=== PATIENT | male | born 1950 | race Caucasian/White ===

== ENCOUNTER 2017-12-07 10:20 | Inpatient (IN) | payer OTHER, MEDICARE ==
[~2017-12-07] VITALS: Ht 177.8 cm; Wt 78.8 kg
[2017-12-07] VITALS (9 sets, daily range): BP systolic 130–143; BP diastolic 70–76; PULSE 67–96; RESP 17–19; TEMP 97.6–99.1; O2SAT 97–100
[2017-12-07] MEDS ORDERED: ceFAZolin INJ 1,000 MG VIAL ONE (10:28)
[2017-12-07] MEDS ORDERED: DIPHTH/TETANUS/ACEL PERTUSSIS (BOOSTER) 0.5 ML VIAL/PFS IM ONE (10:29)
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
[2017-12-07 10:41] LABS: AUTOMATED NEUTROPHIL # 7.5 TH/MM3 (1.8-7.7); BASOPHIL # 0.1 TH/MM3 (0-0.2); BASOPHIL % 1.1 % (0.0-2.0); EOSINOPHIL # 0.1 TH/MM3 (0-0.4); EOSINOPHIL % 0.9 % (0.0-4.0); HEMATOCRIT 44.8 % (39.0-51.0); LYMPH % 27.4 % (9.0-44.0); LYMPHOCYTE # 3.3 TH/MM3 (1.0-4.8); MEAN CELL VOLUME 96.2 FL (80.0-100.0); MEAN CORPUSCULAR HEMOGLOBIN 34.2 PG (27.0-34.0); MEAN CORPUSCULAR HGB CONC 35.6 % (32.0-36.0); MEAN PLATELET VOLUME 8.6 FL (7.0-11.0); MONO % 8.6 % (0.0-8.0); PLATELET COUNT 215 TH/MM3 (150-450); RED BLOOD COUNT 4.66 MIL/MM3 (4.50-5.90); WHITE BLOOD COUNT 12.1 TH/MM3 (4.0-11.0)
[2017-12-07 10:51] LABS: INTERNATIONAL NORMALIZED RATIO 1.1 RATIO; PROTHROMBIN TIME - PATIENT 11.1 SEC (9.8-11.6)
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
[2017-12-07] MEDS ORDERED: LIDOCAINE HCL 2% 20 ML VIAL ONE (11:20)
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
[2017-12-07] MEDS ORDERED: CHLORHEXIDINE GLUCONATE 2 % 1 PACK (2 CLOTHS) TOP PRN (12:15)
[2017-12-07] MEDS ORDERED: ENALAPRILAT 1.25 MG/ML VIAL IV PUSH PRN (12:15)
[2017-12-07] MEDS ORDERED: MORPHINE SULFATE 2 MG/ML SYRINGE IV PUSH PRN (12:15)
[2017-12-07] MEDS ORDERED: MISCELLANEOUS NURSING INFORMATION XX SCH (12:15)
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
[2017-12-07] MEDS ORDERED: IOHEXOL 350 MG/ML 10 ML VIAL (for RAD DIAG) IVCONTRAST ONE (12:40)
[2017-12-07] MEDS: DOCUSATE SODIUM 100 MG CAP PO SCH ×2 (13:00→21:34)
[2017-12-07] MEDS ORDERED: PANTOPRAZOLE SODIUM 40 MG VIAL IVP SCH (13:00)
[2017-12-07] MEDS: BACITRACIN TOP OINT 15 GM TUBE TOP SCH ×2 (13:00→21:00)
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
[2017-12-07] MEDS: ASPIRIN 325 MG TAB PO SCH (14:45)
[2017-12-07] MEDS ORDERED: MORPHINE SULFATE 2 MG/ML SYRINGE SQ PRN (15:00)
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
--- NOTE | 2017-12-07 18:17 | RADRPT ---
EXAM DATE/TIME: 12/07/2017 17:38 [facility] COMPARISON: CTA CAROTID ARTERIES W 3D RECON, December 07, 2017, 12:07. CT CERVICAL SPINE W/O CONTRAST, December 07 18, 10:32. INDICATIONS : Trauma. C2 fracture. MEDICAL HISTORY : None. SURGICAL HISTORY : Femur geremias. ENCOUNTER: Initial ACUITY: 1 day PAIN SCORE: 2/10 LOCATION: [facility] TECHNIQUE: Multiplanar, multisequence MRI examination of the cervical spine was performed. FINDINGS: VERTEBRAE: Patient has a nondisplaced type III odontoid fracture. No perceptible ligamentous abnormality. ALIGNMENT: No evidence of subluxation. CORD: Normal configuration and signal. POST FOSSA: The cerebellar tonsils are normal in position. 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 No associated stenosis. C2-C3: The disc is desiccated but otherwise within normal limits. Mild bilateral uncovertebral and facet ost eoarthritis. There is mild foraminal stenosis, mostly on the left. C3-C4: The disc is desiccated and has mild loss of height. There is diffuse bulging of the disc annulus and mild to moderate bilateral uncovertebral and facet osteoarthritis. There is mild to moderate bilatera l foraminal stenosis. No significant spinal stenosis. C4-C5: The disc is desiccated and has mild loss of height. There is diffuse bulging of the disc annulus and moderate right, mild left uncovertebral and facet osteoarthritis. There is mild narrowing of the fora melanie, mostly on the right. C5-C6: The disc is desiccated and has moderate loss of height. Small, broad/diffuse disc osteophyte complex and left greater than right uncovertebral and facet osteoarthritis present. There is moderate bilater al foraminal stenosis. C6-C7: The disc is desiccated and has mild loss of height. There is a small, broad posterior disc protrusion and mild bilateral uncovertebral and facet osteoarthritis. There is mild foraminal stenosis, mostly on the left. C7-T1: The disc is within normal limits. There is mild bilateral facet osteoarthritis. No foraminal or spina l stenosis. Flow signal void seen throughout the visualized vertebral arteries. CONCLUSION: 1. Nondisplaced type III odontoid fracture. No subluxations or evidence of an associated ligamentous abnormality. Normal cervical cord. 2. Multilevel degenerative changes of above. No significant spinal stenosis demonstrated. There are u p to moderate degrees of foraminal stenosis, mostly C5/C6. 3. Noncontrast MRI appearance of the vertebral arteries within normal limits. Ezekiel Garcia MD on December 07, 2017 at 18:06 Board Certified Radiologist. This report was verified electronically.
[2017-12-07] MEDS: FAMOTIDINE 20 MG TAB PO SCH (21:34)
[2017-12-07] MEDS: SODIUM CHLOR 0.9% 1000 ML INJ 1,000 ML IV SCH (22:49)
[2017-12-08] VITALS (8 sets, daily range): BP systolic 119–127; BP diastolic 65–72; PULSE 60–95; RESP 11–20; TEMP 97.3–99.2; O2SAT 94–98
[2017-12-08] MEDS: ACETAMINOPHEN/HYDROcodone 325 MG/5 MG TAB PO PRN ×2 (03:43→18:01)
[2017-12-08] MEDS: CHLORHEXIDINE GLUCONATE 2 % 1 PACK (2 CLOTHS) TOP SCH (04:00)
[2017-12-08 07:04] LABS: AUTOMATED NEUTROPHIL # 8.4 TH/MM3 (1.8-7.7); BASOPHIL % 0.3 % (0.0-2.0); EOSINOPHIL % 0.1 % (0.0-4.0); HEMATOCRIT 42.2 % (39.0-51.0); HEMOGLOBIN 14.4 GM/DL (13.0-17.0); LYMPH % 18.6 % (9.0-44.0); LYMPHOCYTE # 2.2 TH/MM3 (1.0-4.8); MEAN CELL VOLUME 96.5 FL (80.0-100.0); MEAN CORPUSCULAR HEMOGLOBIN 32.9 PG (27.0-34.0); MEAN CORPUSCULAR HGB CONC 34.1 % (32.0-36.0); MEAN PLATELET VOLUME 8.8 FL (7.0-11.0); MONO % 10.7 % (0.0-8.0); MONOCYTE # 1.3 TH/MM3 (0-0.9); NEUT % 70.3 % (16.0-70.0); PLATELET COUNT 203 TH/MM3 (150-450); RED BLOOD COUNT 4.37 MIL/MM3 (4.50-5.90); RED CELL DISTRIBUTION WIDTH 13.1 % (11.6-17.2); WHITE BLOOD COUNT 11.9 TH/MM3 (4.0-11.0)
[2017-12-08 07:21] LABS: BICARBONATE 25.5 MEQ/L (21.0-32.0); CALCIUM 7.8 MG/DL (8.5-10.1); CREATININE 0.89 MG/DL (0.60-1.30)
[2017-12-08] MEDS: SODIUM CHLOR 0.9% 1000 ML INJ 1,000 ML IV SCH ×2 (07:46→16:20)
[2017-12-08] MEDS ORDERED: ASPIRIN 325 MG TAB PO SCH (09:00)
[2017-12-08] MEDS: BACITRACIN TOP OINT 15 GM TUBE TOP SCH ×2 (09:00→21:22)
[2017-12-08] MEDS: ONDANSETRON HCL 4 MG/2 ML VIAL IV PUSH PRN (09:11)
[2017-12-08] MEDS: ASPIRIN 325 MG TAB PO SCH (09:11)
[2017-12-08] MEDS: FAMOTIDINE 20 MG TAB PO SCH ×2 (09:11→21:22)
[2017-12-08] MEDS: DOCUSATE SODIUM 50 MG/SENNA 8.6 MG TAB PO SCH ×2 (09:11→21:22)
[2017-12-08] MEDS: SODIUM CHLORIDE 0.9% FLUSH 10 ML FLUSH IV FLUSH PRN ×2 (09:12→21:23)
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
[2017-12-08] MEDS: ZOLPIDEM TARTRATE 5 MG TAB PO SCH (21:22)
[2017-12-09] VITALS: BP 126/71; PULSE 69; RESP 20; TEMP 97.6; O2SAT 96
[2017-12-09] MEDS: CHLORHEXIDINE GLUCONATE 2 % 1 PACK (2 CLOTHS) TOP SCH (04:00)
[2017-12-09 04:35] LABS: HEMATOCRIT 42.6 % (39.0-51.0); HEMOGLOBIN 14.6 GM/DL (13.0-17.0)
[2017-12-09] MEDS: ACETAMINOPHEN/HYDROcodone 325 MG/5 MG TAB PO PRN ×2 (06:10→22:01)
[2017-12-09 08:00] VITALS: BP 136/72; PULSE 76; RESP 16; TEMP 98.1; O2SAT 96
[2017-12-09] MEDS: DOCUSATE SODIUM 50 MG/SENNA 8.6 MG TAB PO SCH ×2 (09:47→22:01)
[2017-12-09] MEDS: ASPIRIN 325 MG TAB PO SCH (09:47)
[2017-12-09] MEDS: FAMOTIDINE 20 MG TAB PO SCH ×2 (09:47→22:01)
[2017-12-09] MEDS: BACITRACIN TOP OINT 15 GM TUBE TOP SCH (09:48)
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
[2017-12-09 12:00] VITALS: BP 122/74; PULSE 80; RESP 16; TEMP 98.2; O2SAT 95
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
[2017-12-09 16:00] VITALS: BP 130/78; PULSE 70; RESP 16; TEMP 97.8; O2SAT 95
[2017-12-09] MEDS ORDERED: POVIDONE IODINE 5% (ANTISEPSIS KIT) 4 APPLICATIONS EACH NARE PRN (19:30)
[2017-12-09] MEDS ORDERED: LACTATED RINGER'S 1000 ML IV PRN (19:30)
[2017-12-09] MEDS ORDERED: SODIUM CHLORID 0.9% 500 ML IV PRN (19:30)
[2017-12-09] MEDS ORDERED: METOPROLOL TARTRATE 25 MG TAB PO PRN (19:30)
[2017-12-09] MEDS ORDERED: CHLORHEXIDINE GLUCONATE 2 % 1 PACK (2 CLOTHS) TOPICAL PRN (19:30)
[2017-12-09 20:00] VITALS: BP 140/75; PULSE 62; RESP 18; TEMP 97.7; O2SAT 95
[2017-12-09] MEDS: ONDANSETRON HCL 4 MG/2 ML VIAL IV PUSH PRN (22:00)
[2017-12-09] MEDS: ZOLPIDEM TARTRATE 5 MG TAB PO SCH (22:01)
[2017-12-09] MEDS: SODIUM CHLORIDE 0.9% FLUSH 10 ML FLUSH IV FLUSH PRN (22:03)
[2017-12-10] VITALS: BP 128/70; PULSE 66; RESP 18; TEMP 97.8; O2SAT 96
[2017-12-10] MEDS: BACITRACIN TOP OINT 15 GM TUBE TOP SCH ×3 (00:05→22:36)
[2017-12-10 04:00] VITALS: BP 131/78; PULSE 68; RESP 18; TEMP 98; O2SAT 96
[2017-12-10] MEDS: CHLORHEXIDINE GLUCONATE 2 % 1 PACK (2 CLOTHS) TOP SCH (04:00)
[2017-12-10 08:00] VITALS: BP 135/75; PULSE 74; RESP 17; TEMP 98.1; O2SAT 94
[2017-12-10] MEDS: ASPIRIN 325 MG TAB PO SCH (09:00)
[2017-12-10] MEDS: DOCUSATE SODIUM 50 MG/SENNA 8.6 MG TAB PO SCH ×2 (09:00→21:46)
[2017-12-10] MEDS ORDERED: LACTULOSE SYRUP 20 GM/30 ML CUP PO SCH (09:00)
[2017-12-10] MEDS: MAGNESIUM HYDROXIDE SUSP 30 ML CUP PO SCH ×2 (09:00→21:46)
[2017-12-10] MEDS: FAMOTIDINE 20 MG TAB PO SCH ×2 (09:00→21:46)
[2017-12-10] MEDS ORDERED: ACETAMINOPHEN 1000 MG/100 ML 0 ML IV ONE (10:18)
[2017-12-10] MEDS ORDERED: ACETAMINOPHEN 1000 MG/100 ML 100 ML IV ONE (11:12)
[2017-12-10] MEDS ORDERED: GELFOAM SIZE 100 ONE (11:44)
[2017-12-10] MEDS ORDERED: THROMBIN (TOPICAL) 5,000 UNIT VIAL ONE (11:44)
[2017-12-10] MEDS: VANCOMYCIN HCL 1000 MG VIAL ONE ×2 (11:44→11:45)
[2017-12-10] MEDS ORDERED: BUPIVACAINE/EPINEPHRINE 0.5% 50 ML VIAL ONE (11:44)
[2017-12-10] MEDS ORDERED: SODIUM CHLOR 0.9% 250 ML INJ 250 ML ONE (11:45)
[2017-12-10] MEDS ORDERED: SODIUM CHLOR 0.9% 1000 ML INJ 2,000 ML IV ONE (12:00)
[2017-12-10] MEDS ORDERED: DEXAMETHASONE SOD PHOS 4 MG/ML VIAL IV ONE (12:00)
[2017-12-10] MEDS ORDERED: ePHEDrine/NS 25 MG/5 ML SYRINGE IV ONE (12:00)
[2017-12-10] MEDS ORDERED: PHENYLEPH/NS 1000 MCG/10 ML SYR IV ONE (12:00)
[2017-12-10] MEDS ORDERED: PROPOFOL 200 MG/20 ML AMP IV ONE (12:00)
[2017-12-10] MEDS ORDERED: LIDOCAINE HCL 1% PF 5 ML SYRINGE OTHER ONE (12:00)
[2017-12-10] MEDS ORDERED: ONDANSETRON HCL 4 MG/2 ML VIAL IV ONE (12:00)
[2017-12-10] MEDS ORDERED: SUCCINYLCHOLINE CHLORIDE 100 MG/5 ML SYRINGE IV PUSH ONE (12:00)
[2017-12-10] MEDS ORDERED: KETAMINE HCL 500 MG/10 ML VIAL ONE (12:03)
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
[2017-12-10] MEDS ORDERED: DEXAMETHASONE SOD PHOS 4 MG/ML VIAL ONE (12:09)
[2017-12-10] MEDS ORDERED: PROPOFOL 200 MG/20 ML AMP ONE (12:10)
[2017-12-10] MEDS ORDERED: LIDOCAINE HCL 2% 100 MG/5 ML SYRINGE ONE (12:11)
[2017-12-10] MEDS ORDERED: VANCOMYCIN HCL 1000 MG VIAL IRRIGATION ONE (13:01)
[2017-12-10] MEDS ORDERED: VANCOMYCIN HCL 1000 MG VIAL IV ONE (13:07)
--- NOTE | 2017-12-10 13:52 | PD.OP ---
Operative Report Date of Surgery: Dec 10, 2017 Preoperative Diagnosis: Cervical C2 type II/III odontoid/body fracture with extension into lateral mass Postoperative Diagnosis: Same Procedure: Anterior cervical C2 odontoid screw placement Anesthesia: Gen. endotracheal by [facility] group Surgeon: Dorian Goldstein M.D. Reinsurance Accountant(s): Dorian Pollock MD Dec 10, 2017 13:52
[2017-12-10] MEDS ORDERED: DO NOT ADM ANY ANTICOAGULANT DRUGS PRN (14:02)
--- NOTE | 2017-12-10 14:06 | RADRPT ---
EXAM DATE/TIME: 12/10/2017 13:23 [place] COMPARISON: No previous studies available for comparison. INDICATIONS : Post-op odontoid screw for C2 fracture. MEDICAL HISTORY : None. SURGICAL HISTORY : None. ENCOUNTER: Subsequent ACUITY: 4 - 6 days PAIN SCORE: Non-responsive. LOCATION: neck FINDINGS: Tip of the screw projects through the back of the odontoid. Lungs anatomic. CONCLUSION: Alignment as above. Fidel Mccormick MD FACR on December 10, 2017 at 14:02 Board Certified Radiologist. This report was verified electronically.
[2017-12-10] MEDS ORDERED: MIDAZOLAM HCL 2 MG/2 ML VIAL ONE (14:10)
[2017-12-10] MEDS ORDERED: MENTHOL LOZENGE BUCCAL PRN (14:30)
[2017-12-10] MEDS ORDERED: ACETAMINOPHEN 325 MG TAB PO PRN (14:30)
[2017-12-10] MEDS ORDERED: PROMETHAZINE INJ 25 MG/ML VIAL IM PRN (14:30)
[2017-12-10] MEDS ORDERED: cloNIDine HCL 0.1 MG TAB PO PRN (14:30)
[2017-12-10] MEDS ORDERED: ALUMINUM/MAGNESIUM/SIMETH 30 ML CUP PO PRN (14:30)
[2017-12-10] MEDS ORDERED: BISACODYL 10 MG SUPP RECTAL PRN (14:30)
[2017-12-10] MEDS ORDERED: CYCLOBENZAPRINE HCL 10 MG TAB PO PRN (14:30)
[2017-12-10] MEDS ORDERED: MORPHINE SULFATE 2 MG/ML SYRINGE IV PUSH PRN (14:30)
[2017-12-10] MEDS ORDERED: ACETAMINOPHEN/HYDROcodone 325 MG/10 MG TAB PO PRN ×2 (14:30)
[2017-12-10] MEDS: NS + KCL 20 MEQ INJ 1,000 ML IV SCH ×2 (14:30→23:47)
[2017-12-10] MEDS ORDERED: RESP: ALBUTEROL 2.5 MG/3 ML NEB (PRN) NEB (14:30)
[2017-12-10] MEDS ORDERED: MAGNESIUM HYDROXIDE SUSP 30 ML CUP PO PRN (14:30)
[2017-12-10] MEDS ORDERED: SODIUM CHLORIDE 0.9% FLUSH 10 ML FLUSH IV FLUSH PRN (14:30)
[2017-12-10] MEDS ORDERED: *morphine SULFATE 8 MG/ML PERIprocedure ONLY ONE (14:43)
[2017-12-10] MEDS: DEXAMETHASONE SOD PHOS 4 MG/ML VIAL IV PUSH SCH ×2 (17:10→23:45)
[2017-12-10] MEDS ORDERED: SODIUM CHLORIDE 0.9% FLUSH 10 ML FLUSH IV FLUSH SCH (21:00)
[2017-12-10 21:25] VITALS: BP 136/71; PULSE 81; RESP 18; TEMP 98; O2SAT 93
--- NOTE | 2017-12-10 21:38 | EKG ---
Date Performed: 12/09/2017 Time Performed: 13:41:38 PTAGE: 67 years EKG: Sinus rhythm NORMAL ECG NO PREVIOUS TRACING DOCTOR: Olegario Kelley Interpretating Date/Time 12/10/2017 21:36:37
[2017-12-10] MEDS: ZOLPIDEM TARTRATE 5 MG TAB PO SCH (21:46)
[2017-12-10] MEDS: ONDANSETRON HCL 4 MG/2 ML VIAL IV PUSH PRN (22:35)
[2017-12-10 23:44] VITALS: BP 118/68; PULSE 70; RESP 16; TEMP 98.1; O2SAT 93
[2017-12-11 05:04] VITALS: BP 125/65; PULSE 76; RESP 18; TEMP 97.5; O2SAT 95
[2017-12-11 05:27] LABS: AUTOMATED NEUTROPHIL # 11.4 TH/MM3 (1.8-7.7); BASOPHIL % 0.3 % (0.0-2.0); EOSINOPHIL % 0.1 % (0.0-4.0); HEMATOCRIT 41.3 % (39.0-51.0); HEMOGLOBIN 14.3 GM/DL (13.0-17.0); LYMPH % 9.7 % (9.0-44.0); LYMPHOCYTE # 1.3 TH/MM3 (1.0-4.8); MEAN CELL VOLUME 96.7 FL (80.0-100.0); MEAN CORPUSCULAR HEMOGLOBIN 33.6 PG (27.0-34.0); MEAN CORPUSCULAR HGB CONC 34.7 % (32.0-36.0); MONO % 2.6 % (0.0-8.0); MONOCYTE # 0.3 TH/MM3 (0-0.9); NEUT % 87.3 % (16.0-70.0); PLATELET COUNT 233 TH/MM3 (150-450); RED BLOOD COUNT 4.27 MIL/MM3 (4.50-5.90); RED CELL DISTRIBUTION WIDTH 12.7 % (11.6-17.2); WHITE BLOOD COUNT 13.1 TH/MM3 (4.0-11.0)
[2017-12-11 05:45] LABS: BICARBONATE 26.8 MEQ/L (21.0-32.0); CALCIUM 8.3 MG/DL (8.5-10.1); CREATININE 0.83 MG/DL (0.60-1.30)
[2017-12-11] MEDS: DEXAMETHASONE SOD PHOS 4 MG/ML VIAL IV PUSH SCH ×2 (06:08→11:31)
[2017-12-11 09:09] VITALS: BP 136/76; PULSE 64; RESP 20; TEMP 97.7; O2SAT 94
[2017-12-11] MEDS: MAGNESIUM HYDROXIDE SUSP 30 ML CUP PO SCH (09:39)
[2017-12-11] MEDS: ASPIRIN 325 MG TAB PO SCH (09:39)
[2017-12-11] MEDS: FAMOTIDINE 20 MG TAB PO SCH (09:39)
[2017-12-11] MEDS: DOCUSATE SODIUM 50 MG/SENNA 8.6 MG TAB PO SCH (09:39)
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
[2017-12-11] MEDS ORDERED: WALKER WHEELS/F1 MIS (10:03)
[2017-12-11 12:00] VITALS: BP 117/70; PULSE 84; RESP 17; TEMP 98.3; O2SAT 95
[2017-12-11] MEDS ORDERED: ASA325 PO (12:02)
[2017-12-11] MEDS ORDERED: HYDR-3583 PO (12:02)
[2017-12-11] MEDS ORDERED: CYCL10TA PO (12:02)
[2017-12-11] MEDS ORDERED: PERI PO (12:02)
[2017-12-11] MEDS ORDERED: MAGN30S PO (12:02)
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
== END 2017-12-11 14:59 | disposition home or self-care (01) | DRG 518 ==
LOC: NEPI 10:20 → NEDA 11:30 → OBSVTOIN 11:52 → EDBD 11:52 → N03A 13:03 → N07B 12-08 17:44 → N05B 12-10 14:12 → N05A 12-10 17:23
PROVIDERS: ADMIT Surgery; ATTEND Surgery
PROC: 0HQ3XZZ Repair Left Ear Skin, External Approach (ICD-10-PCS; 2017-12-07)
PROC: 0PS304Z Reposition Cervical Vertebra with Internal Fixation Device, Open Approach (ICD-10-PCS; principal; 2017-12-10 11:36)
DX: S12.190A Other displaced fracture of second cervical vertebra, initial encounter for closed fracture (principal); I77.74 Dissection of vertebral artery; S06.0X9A Concussion with loss of consciousness of unspecified duration, initial encounter; G89.29 Other chronic pain; R41.3 Other amnesia; S01.312A Laceration without foreign body of left ear, initial encounter; S60.511A Abrasion of right hand, initial encounter; V23.4XXA Motorcycle driver injured in collision with car, pick-up truck or van in traffic accident, initial encounter; Y92.488 Other paved roadways as the place of occurrence of the external cause; Y93.9 Activity, unspecified; Y99.9 Unspecified external cause status; S60.512A Abrasion of left hand, initial encounter; S90.414A Abrasion, right lesser toe(s), initial encounter; S80.212A Abrasion, left knee, initial encounter; S80.211A Abrasion, right knee, initial encounter; M25.551 Pain in right hip; S00.01XA Abrasion of scalp, initial encounter
CPT/HCPCS: 70450; 70498; 71045; 72040; 72125; 72141; 72170; 76000; 80048; 85014; 85018; 85025; 85610; 85730; 86850; 86900; 86901; 87641; 90715; 93005; 94150; C1713; J0131; J0330; J0690; J1100; J2250; J2270; J2370; J2405; J3010; J3370; J3480; J7030; J7050; L0150; L0172; Q9967